=== PATIENT | male | born 1990 | race African-American/Black ===

== ENCOUNTER 2017-05-06 00:04 | Emergency (ER) | payer SELFPAY ==
[~2017-05-06] VITALS: Ht 177.8 cm; Wt 75.0 kg
[~2017-05-06 00:04] MED LIST: ALBU6.7H INH; PRED-503 PO
[2017-05-06 00:07] VITALS: BP 147/93; PULSE 61; RESP 16; TEMP 98.1; O2SAT 98
--- NOTE | 2017-05-06 00:49 | PD ---
HPI Chief Complaint: Headache Time Seen by Provider: 00:34 Travel History International Travel<30 days: No Contact w/Intl Traveler<30days: No Traveled to known affect area: No History of Present Illness HPI headache on the right side of his head that began 10:30 PM. The pain began in the right ear. No change in his hearing. He has chronic nasal stuffiness and drainage related to his allergies. A week ago he began to have a yellow nasal discharge, sore throat, gland swelling on the right side of his neck. [facility] Past Medical History Narrative Medical asthma and pneumonia. Asthma: Yes Diminished Hearing: No Respiratory: Yes (ASTHMA) Immunizations Current: Yes Past Surgical History Surgical History: No Previous Surgery Social History Alcohol Use: Yes Tobacco Use: Yes Substance Use: No Allergies-Medications (Allergen,Severity, Reaction): Coded Allergies: No Known Allergies (Unverified , 05/06/17) Reported Meds & Prescriptions Reported Meds & Active Scripts Active Augmentin (Amoxicillin-Clavulanate) 875-125 Mg Tab 1 Tab PO BID Proventil Hfa 6.7 GM Inh (Albuterol Sulfate) 90 Mcg/Act Aer 1 Puff INH Q4H PRN Deltasone (Prednisone) 20 Mg Tab 40 Mg PO BID Review of Systems Except as stated in HPI: all other systems reviewed are Neg General / Constitutional: No: Fever Eyes: No: Visual changes HENT: Positive: Headaches Cardiovascular: No: Chest Pain or Discomfort Respiratory: No: Shortness of Breath Gastrointestinal: No: Abdominal Pain Genitourinary: No: Dysuria Musculoskeletal: No: Pain Skin: No Rash Neurologic: Positive: Headache, No: Weakness, Focal Abnormalities, Change in Mentation, Slurred Speech, Sensory Disturbance Psychiatric: No: Depression Endocrine: No: Polydipsia Hematologic/Lymphatic: No: Easy Bruising Physical Exam Narrative General: The patient is a well-developed well-nourished male in no acute distress. Head and Neck exam: Head is normocephalic atraumatic. Sinuses: The patient has sinus tenderness on palpation over the frontal sinus on the right side. Ears: External auditory canals is not erythematous, no tragus tenderness on palpation. Tympanic membranes are pearly with a good cone of light, no erythema or exudate on the left, on the right the patient has a serous fluid with mild erythema. The patient has popping on opening and closing his mouth on palpation of the TMJ, however the right TMJ is nontender on palpation. Eyes: EOMI, pupils are equal round and reactive to light. Nose: Midline septum with erythematous edematous nasal mucosa and a yellow nasal discharge. Mouth: Dentition unremarkable. Moist mucus membranes. Posterior oropharynx is not erythematous. No tonsillar hypertrophy. Uvula midline. Airway patent. Neck: No palpable lymphadenopathy. No nuchal rigidity. No thyromegaly. Cardiovascular: Regular rate and rhythm without murmurs, gallops, or rubs. Lungs: Clear to auscultation bilaterally. No wheezes, rhonchi, or rales. Abdomen: Soft, without tenderness to palpation in all 4 quadrants of the abdomen. No guarding, rebound, or rigidity. Normal bowel sounds are audible. No tenderness on palpation of McBurney's point. Extremities: No clubbing, cyanosis, or edema. Neurologic Exam: Grossly nonfocal. Skin Exam: No rash noted. Intact skin that is warm and dry. Data Data Last Documented VS Vital Signs Date Time Temp Pulse Resp B/P (MAP) Pulse Ox O2 Delivery O2 Flow Rate FiO2 05/06/17 00:07 98.1 61 16 147/93 (111) 98 Room Air Orders Orders Ibuprofen (Motrin) (05/06/17 01:00) MDM Medical Decision Making Medical Screen Exam Complete: Yes Emergency Medical Condition: Yes Medical Record Reviewed: Yes Differential Diagnosis Acute sinusitis, versus otitis media, versus temporomandibular joint syndrome, versus parotiditis, versus lymphadenitis, versus dental infection Narrative Course During the course of the patients emergency department visit, the patients history, examination, and differential diagnosis were reviewed with the patient. The patient was initially provided Motrin for pain. The patient's findings are most consistent with acute sinusitis with an early right otitis media. The patient will be discharged home with a prescription for Augmentin. The patient is resting comfortably and feels better, is alert and in no distress. The patients results and examination findings were discussed with the patient. The repeat examination is unremarkable and benign. The history, exam, diagnostic testing, and current condition do not suggest any significant pathology to warrant further testing, continued ED treatment, admission, or surgical evaluation at this point. The vital signs have been stable. The patient does not have uncontrollable pain, intractable vomiting, or other significant symptoms. The patient's condition is stable and appropriate for discharge. The patient will pursue further outpatient evaluation with a primary care physician or other designated or consulting physician as indicated in the discharge instructions. The patient expressed understanding and was agreeable with this plan. Diagnosis Primary Impression: Acute sinusitis Qualified Codes: J01.10 - Acute frontal sinusitis, unspecified Referrals: [facility] 1 week Patient Instructions: General Instructions, Sinusitis (ED) Med/Other Pt SpecificInfo: Prescription(s) given Scripts Amoxicillin-Clavulanate (Augmentin) 875-125 Mg Tab 1 TAB PO BID for Infection, #20 TAB 0 Refills Prov: Vinita Jackson MD 05/06/17 Disposition: 01 DISCHARGE HOME Condition: Stable Vinita Jackson MD May 06, 2017 00:49
[2017-05-06] MEDS ORDERED: AUGM875T3 PO (00:50)
[2017-05-06] MEDS ORDERED: IBUPROFEN 600 MG TAB PO ONE (01:00)
== END 2017-05-06 01:41 | disposition home or self-care (01) ==
LOC: NEPC 00:04
DX: J01.10 Acute frontal sinusitis, unspecified (principal); R51 Headache; R22.1 Localized swelling, mass and lump, neck; J45.909 Unspecified asthma, uncomplicated; Z72.0 Tobacco use; Z79.899 Other long term (current) drug therapy
CPT/HCPCS: 99283